=== PATIENT | female | born 1965 | race Caucasian/White ===

== ENCOUNTER → 2016-12-09 | Outpatient (CLI) | payer BC | LOC: MC.RAD 08:27 | DX: Z12.31 Encounter for screening mammogram for malignant neoplasm of breast (principal) ==

== ENCOUNTER → 2017-12-26 | Outpatient (CLI) | payer BC | LOC: MC.RAD 07:40 | DX: Z12.31 Encounter for screening mammogram for malignant neoplasm of breast (principal) ==

== ENCOUNTER 2018-01-10 06:17 | Day surgery (SDC) | payer BC ==
[~2018-01-10] VITALS: Ht 162.6 cm; Wt 75.2 kg
[2018-01-10] MEDS ORDERED: SYNTHROID0.075 MG/T PO (06:36)
[2018-01-10] MEDS ORDERED: WOMEN'S DAILY1 TAB PO (06:37)
[2018-01-10 06:43] VITALS: BP 123/85; PULSE 64; TEMP 97.9
[2018-01-10 08:30] VITALS: BP 114/85; PULSE 71; TEMP 97.6
[2018-01-10 08:45] VITALS: BP 109/45; PULSE 76
[2018-01-10 08:57] VITALS: BP 110/85; PULSE 61
== END 2018-01-10 09:03 | disposition home or self-care (01) ==
LOC: SDCO 06:17
DX: Z12.11 Encounter for screening for malignant neoplasm of colon (principal); Z83.71 Family history of colonic polyps; D12.3 Benign neoplasm of transverse colon; E03.9 Hypothyroidism, unspecified; G43.909 Migraine, unspecified, not intractable, without status migrainosus; Z88.8 Allergy status to other drugs, medicaments and biological substances
CPT/HCPCS: OP; J2250; J3010; J7030

== ENCOUNTER → 2019-03-07 | Outpatient (CLI) | payer BC ==
[~2019-03-07] MED LIST: SYNTHROID0.075 MG/T PO; WOMEN'S DAILY1 TAB PO
== END ==
LOC: MC.RAD 07:03
DX: Z12.31 Encounter for screening mammogram for malignant neoplasm of breast (principal)

== ENCOUNTER → 2019-08-22 | Outpatient (CLI) | payer BC | LOC: COL.RAD 09:16 | DX: R07.9 Chest pain, unspecified (principal) | CPT/HCPCS: Q9967 ==

== ENCOUNTER → 2021-07-15 | Outpatient (CLI) | payer BC | LOC: COL.RAD 12:55 | DX: G31.9 Degenerative disease of nervous system, unspecified (principal) ==